=== PATIENT | female | born 1985 | race Caucasian/White ===

== ENCOUNTER 2017-03-22 20:56 | Inpatient (IN) | payer OTHER ==
[2017-03-22 21:42] LABS: ROM Internal QC QC Line Present
[2017-03-23] MEDS ORDERED: Glycerin ADULT SUPP PR PRN (06:01)
[2017-03-23] MEDS ORDERED: OXYTOCIN* 10 UNITS/ML 1 ML VIAL IM ONE (06:01)
[2017-03-23] MEDS ORDERED: Acetaminophen TAB* 325 MG PO PRN (06:01)
[2017-03-23] MEDS ORDERED: Dibucaine 1% 28.35 GM TUBE PR PRN (06:01)
[2017-03-23] MEDS ORDERED: Ibuprofen TAB* 600 MG ONE (07:49)
[2017-03-23] MEDS: Witch Hazel PAD* JAR TOPICAL PRN (08:00)
[2017-03-23] MEDS ORDERED: Simethicone TAB* 80 MG TAB.CHEW PO SCH (08:30)
[2017-03-23] MEDS: Docusate CAP* 100 MG PO SCH ×3 (10:41→21:44)
[2017-03-23] MEDS: Ibuprofen TAB* 600 MG PO PRN ×2 (13:36→19:28)
[2017-03-24] MEDS: Ibuprofen TAB* 600 MG PO PRN ×3 (03:38→18:16)
[2017-03-24 08:02] LABS: Hematocrit 32 % (35-47); Mean Corpuscular HGB Conc 34 g/dl (31-36); Mean Corpuscular Hemoglobin 32 pg (27-31); Mean Corpuscular Volume 94 fL (80-97); Mean Platelet Volume 9 um3 (7.4-10.4); Red Blood Count 3.39 10^6/ul (4.0-5.4); Red Cell Distribution Width 14 % (10.5-15)
[2017-03-24] MEDS: Measles, Mumps,Rubella VACC* 0.5 ML/VIAL SUBCUT ONE ×2 (08:33→20:18)
[2017-03-24] MEDS: Docusate CAP* 100 MG PO SCH ×3 (09:00→20:01)
[2017-03-24] MEDS ORDERED: Ferrous Gluconate TAB* 324 MG TAB PO SCH (09:00)
--- NOTE | 2017-03-24 11:49 | PTEDU ---
Patient Name: FOLRENCE WHITMORE WHITMOREFLORENCE CASTELLANOS selected video: Never Ever Shake a Baby to view on 03/24/2017 at 11:47:09 AM from [facility] [id number]
--- NOTE | 2017-03-24 11:59 | PTEDU ---
Patient Name: FLORENCE WHITMORE FLORENCE WHITMORE selected video: BBOB: Bonding Through Massage to view on 03[facility]24/2017 at 11:57:07 [id number]
--- NOTE | 2017-03-24 14:36 | PTEDU ---
Patient Name: FLORENCE WHITMORE FLORENCE WHITMORE selected video: Follow Me Mum: The [place] to Successful to view on [facility]24[facility]20 17 [facility] 2[facility]34:13 [id number]
[2017-03-24] MEDS: Witch Hazel PAD* JAR TOPICAL PRN (20:00)
[2017-03-25] MEDS: Ibuprofen TAB* 600 MG PO PRN ×2 (00:20→08:19)
[2017-03-25 08:17] VITALS: BP 109/70
[2017-03-25] MEDS: Docusate CAP* 100 MG PO SCH (08:18)
== END 2017-03-25 12:30 | disposition home or self-care (01) | DRG 775 ==
LOC: MCHOBOUT 20:56 → MCHOB 03-23 01:17
PROVIDERS: ADMIT Midwife; ATTEND Midwife
PROC: 10E0XZZ Delivery of Products of Conception, External Approach (ICD-10-PCS; principal; 2017-03-23)
PROC: 0KQM0ZZ Repair Perineum Muscle, Open Approach (ICD-10-PCS; 2017-03-23)
PROC: 0W8NXZZ Division of Female Perineum, External Approach (ICD-10-PCS; 2017-03-23)
DX: O48.0 Post-term pregnancy (principal); O63.1 Prolonged second stage (of labor); Z3A.40 40 weeks gestation of pregnancy; O70.0 First degree perineal laceration during delivery; O77.0 Labor and delivery complicated by meconium in amniotic fluid; O69.81X0 Labor and delivery complicated by cord around neck, without compression, not applicable or unspecified; Z37.0 Single live birth; Z88.0 Allergy status to penicillin; Z88.2 Allergy status to sulfonamides
CPT/HCPCS: 36415; 84112; 85025; 90707; A9270-GY; J2590